=== PATIENT | female | born 2005 | race Caucasian/White ===

== ENCOUNTER 2025-02-05 10:10 | Emergency (ER) | payer OTHER, SELFPAY ==
[2025-02-05 10:28] VITALS: BP 114/76
[2025-02-05 11:08] LABS: COVID-19 Antigen Negative (Negative)
--- NOTE | 2025-02-05 11:49 | ED.GENMED ---
History of Present Illness
General
Chief Complaint: Throat Problem
Source: patient
Exam Limitations: none
Time Seen by Provider: 02/05/25 11:13
Nursing documentation reviewed up to this point in time: agreed with
History of Present Illness
History of Present Illness:
19-year-old female with sore throat for the past 2 days. She denies n/v/ fever or chills. No known sick contacts.
Past History
Past History
ED Past Medical History: None
ED Past Surgical History: Other (With some teeth)
Social History
Tobacco: Smoker (Occasional)
Alcohol: Occasional
Drug: None
Personal: Single
Living: with family
Employment: Employed
Review of Systems
Review of Systems
Allergies reviewed?: Yes
All Other Systems: ROS reviewed and negative except as documented in HPI and ROS
Constitutional: Denies fever
EENT: Reports sore throat
Respiratory: Denies cough
ABD/GI: Denies nausea, vomiting or diarrhea
Phy Exam
Physical Exam
Physical Exam:
GENERAL: No acute distress. A&Ox3.
CONSTITUTIONAL: Afebrile.
EYES: clear, conjunctivae normal
Neck: No lymphadenopathy, supple
ENMT: moist mucus membranes, Pharynx nl
RESPIRATORY: Regular respirations, nonlabored, lungs clear.
CARDIOVASCULAR: Regular rate and rhythm, no murmurs, no rubs.
GI: Soft, nontender
MUSCULOSKELETAL: Moves with ease. Well perfused.
SKIN: Warm, dry, pink
PSYCH: Normal mood and affect. Well kept, interactive and appropriate
NEUROLOGIC: Awake, alert and oriented. No focal neurological deficits
Course
Orders/Labs/Results
Orders:
Orders
02/05/25 10:32
Rapid Strep Group A Urgent
TISH Source: Throat/Pharynx
Specimen Description:
Date Specimen was Collected: 02/05/25
Time Specimen was Collected: 10:30
02/05/25 10:34
COVID-19 Antigen Urgent
Source: Nasal Swab
Influenza A+B Rapid Molecular Urgent
TISH Source: Nasal Swab
Specimen Description:
Date Specimen was Collected: 02/05/25
Time Specimen was Collected: 10:30
Vital Signs
Initial and Last Documented VS:
Initial Vital Signs
Temp Pulse Resp BP Pulse Ox
98.1 F 98 17 114/76 96
02/05/25 10:28 02/05/25 10:28 02/05/25 10:28 02/05/25 10:28 02/05/25 10:28
Last Documented Vital Signs
Temp Pulse Resp BP Pulse Ox
98.1 F 98 17 114/76 96
02/05/25 10:28 02/05/25 10:28 02/05/25 10:28 02/05/25 10:28 02/05/25 11:49
MDM/Problems Addressed
Differential Diagnosis Includes:
Viral versus bacterial pharyngitis
MDM/Problems Addressed:
19-year-old female with sore throat for the past 2 days. She denies n/v/ fever or chills. No known sick contacts.
Afebrile, NAD
Pharynx appears normal
COVID test is negative
Rapid strep is negative
Most likely viral pharyngitis, no treatment indicated at this point.
She states ibuprofen does help so encouraged to continue as needed
*Pulse Oximetry
SaO2: 96
Oxygen Mode of Delivery: Room air
Patient hypoxic: not evaluated
*Critical Care Note
Total Time (30-74mins, 75-104mins- exclusive of procedures): Not Applicable
ED Attending Note
-
Portions of this chart may have been created with voice recognition software.� Occasional wrong word or��sound alike� substitutions may have occurred due to the inherent limitations of voice recognition software.
Discharge Plan
Departure
Patient Disposition: Home (Routine Discharge)
Date of Disposition: 02/05/25
Time of Disposition: 11:52
Patient with high blood pressure during this ER visit?: No
Condition: Good
Discharge Problem:
Acute pharyngitis
Instructions: Sore Throat, Adult (DC)
Referrals:
Iris Mak CRNP [Family Provider, Family Practice] - As needed
Activity Restrictions/Additional Instructions:
As we discussed, your strep screen is negative, your COVID test is negative.
This is most likely a viral sore throat which may last from 7 to 14 days.
Ibuprofen 600 mg, with food, every 6 hours as needed for throat discomfort.
You may buy Cepacol throat spray at your pharmacy, this will help numb the throat temporarily
Interventions
Interventions:
*Risk Screen - Suicide Last Done: 02/05/25 10:30
*General Assessment Last Done: 02/05/25 10:30
*Neglect/Abuse Screening Last Done: 02/05/25 10:30
*ED COVID-19 Vaccine History Last Done: 02/05/25 10:30
*Nursing Disposition Last Done: 02/05/25 12:04
ED-EENT Assessment Last Done: 02/05/25 12:04
ED- Pulmonary Assessment Last Done: 02/05/25 12:04
Discharge Date and Time
Discharge Date/Time: 02/05/25 12:05
Print Language: HAITIAN
== END 2025-02-05 12:05 | disposition home or self-care (01) ==
LOC: EMR 10:10
PROVIDERS: EMERGENCY PHYSICIAN Emergency Medicine; FAMILY PHYSICIAN Registered Nurse
DX: J02.9 Acute pharyngitis, unspecified (principal); F17.200 Nicotine dependence, unspecified, uncomplicated; Z11.52 Encounter for screening for COVID-19
CPT/HCPCS: 99283; 87070; 87502; 87811; 87880